=== PATIENT | male | born 1990 ===

== ENCOUNTER 2024-10-25 08:46 | Emergency (ER) | payer SELFPAY ==
[2024-10-25] MEDS ORDERED: Ketorolac Tromethamine 30 MG (1 mL) VIAL ONE (09:16)
== END 2024-10-25 09:20 | disposition home or self-care (01) ==
LOC: ERS 08:46
DX: L72.9 Follicular cyst of the skin and subcutaneous tissue, unspecified (principal)
CPT/HCPCS: 96372; 99282; J1885